=== PATIENT | female | born 1980 | race American Indian/Alaskan Native ===

== ENCOUNTER 2016-08-01 23:46 | Emergency (ER) | payer BC ==
[~2016-08-01] VITALS: Ht 165.1 cm; Wt 83.0 kg
[2016-08-02 00:18] LABS: PLATELET COUNT 346 K/uL (152-353)
[2016-08-02 00:31] LABS: POTASSIUM 3.2 mmol/L (3.6-5.2); SODIUM 134 mmol/L (136-145)
[2016-08-02 01:08] VITALS: BP 122/82; TEMP 98.5
== END 2016-08-02 01:13 | disposition home or self-care (01) ==
LOC: ED 23:46
DX: M94.0 Chondrocostal junction syndrome [Tietze] (principal); R07.89 Other chest pain
CPT/HCPCS: 36415; 80053; 82550; 84484; 85027; 85610; 85730; 86318; 99283

== ENCOUNTER 2017-08-13 23:00 | Emergency (ER) | payer BC ==
[~2017-08-13] VITALS: Ht 167.6 cm; Wt 88.9 kg
[2017-08-13 23:29] VITALS: BP 134/69; TEMP 98.7
== END 2017-08-13 23:40 | disposition home or self-care (01) ==
LOC: ED 23:00
DX: R03.0 Elevated blood-pressure reading, without diagnosis of hypertension (principal)
CPT/HCPCS: 99281

== ENCOUNTER 2022-06-18 17:29 | Emergency (ER) | payer OTHER ==
[~2022-06-18] VITALS: Ht 165.1 cm; Wt 93.0 kg
[2022-06-18 17:42] VITALS: TEMP 98.2
[2022-06-18 19:42] LABS: PLATELET COUNT 318 K/uL (152-353)
[2022-06-18 19:49] LABS: POTASSIUM 3.7 mmol/L (3.6-5.2)
[2022-06-18 21:30] VITALS: BP 138/86
== END 2022-06-18 21:49 | disposition home or self-care (01) ==
LOC: ED 17:29
PROVIDERS: Emergency Medicine
DX: E16.1 Other hypoglycemia (principal); D37.8 Neoplasm of uncertain behavior of other specified digestive organs
CPT/HCPCS: 36415; 80053; 81000; 82542; 83525; 84681; 85027; 99283